=== PATIENT | female | born 1960 | race Caucasian/White ===

== ENCOUNTER 2017-04-03 19:42 | Emergency (ER) | payer MEDICARE, OTHER ==
[~2017-04-03] VITALS: Ht 152.4 cm; Wt 78.0 kg
[~2017-04-03 19:42] MED LIST: AMLO-145 PO; CALC200T PO; CARV25TA79 PO; CHOL400T10 PO; CINA60TA; CLOP75TA19 PO; DOXY-220 PO; FOLI-49 PO; HYDR-3498 PO; HYDR-3671 PO; IBUP-1542; LIPA1CAP4 PO; NEPH PO; OLME40TA14 PO; OMEP20CA16 PO; ONDA-43 PO; SEVE800T7 PO
[2017-04-03 19:48] VITALS: Ht 152.4 cm; Wt 78.0 kg
[2017-04-03] MEDS ORDERED: IPRATROPIUM (NEB) 0.5 MG/2.5 ML AMP NEB STA (20:30)
[2017-04-03] MEDS ORDERED: ALBUTEROL 0.083% (NEB) 2.5 MG/3 ML AMP NEB STA (20:30)
--- NOTE | 2017-04-03 21:59 | ERD ---
ER Documentation Chief Complaint Date/Time DATE: 04/03/17 TIME: 21:51 Chief Complaint c/o cough x 1 wk. (+) moderate phlegm. (+) CP when coughing. No fever. HPI This pleasant 56-year-old [place]ian-speaking female presents to emergency department with her son for translation reporting more than a week of cough,. Patient reports cough is phlegmy productive for brown to clear mucus. Denies any shortness of breath, reports chest pain secondary to coughing. Denies palpitations, dizziness. Patient denies fever, chills, night sweats or hemoptysis. Patient reports coughing so hard that she is getting a headache, has tried [id number] medication with little relief of symptoms. Denies history of asthma, COPD, seasonal allergies. ROS All systems reviewed and are negative except as per history of present illness. Medications Home Meds Active Scripts Doxycycline Monohydrate* (Doxycycline Monohydrate*) 100 Mg Tablet, 100 MG PO BID for RUE AV fistula cellulitis , #20 TAB Prov:FRANCISCO CALIXTO MD 07/20/15 Calcium Carbonate* (Tums*) 500 Mg Tab.chew, 500 MG PO TID, #30 TAB.CHEW take 2 tabs by mouth 3 times a day Prov:DANIELLE WOMACK DO 04/28/15 Reported Medications Hydrocodone Bit-Acetaminophen* (Dania*) 5-325 Mg Tab, 1 TAB PO Q4H Y for PAIN, TAB 04/24/15 Hydralazine Hcl* (Hydralazine Hcl*) 25 Mg Tab, 25 MG PO TID, TAB 04/24/15 Olmesartan Medoxomil (Benicar) 40 Mg Tablet, 40 MG PO DAILY, TAB 04/24/15 Ondansetron Hcl* (Zofran*) 4 Mg Tab, 4 MG PO Q4H Y for NAUSEA AND OR VOMITING, TAB 04/24/15 Nyfclv-Qwiunmvg-Zaasnod* (Kadie BOSS* 12,000) 12,000 L-38,000-60,000 Unit Capsule., 1 CAP PO WITH MEALS, CAP 04/24/15 Omeprazole* (Omeprazole*) 20 Mg Capsule.dr, 20 MG PO DAILY, CAP 04/24/15 Cholecalciferol* (Vitamin D*) 400 Unit Tablet, 400 UNIT PO DAILY, TAB 04/24/15 Ibuprofen* (Ibuprofen*) 600 Mg Tablet 02/18/13 Cinacalcet* (Sensipar*) 60 Mg Tablet, DAILY 02/18/13 Folic Acid* (Folic Acid*) 1 Mg Tablet, 1 MG PO DAILY 08/15/11 Sevelamer Carbonate* (Renvela*) 800 Mg Tablet, 800 MG PO TID 08/15/11 Multivit/Ca Carb/B Cmplx/Fa* (Lucila-Vic*) 1 Tab Tab, 1 TAB PO DAILY 08/15/11 Clopidogrel Bisulfate (Plavix) 75 Mg Tablet, 75 MG PO DAILY 08/15/11 Carvedilol* (Carvedilol*) 25 Mg Tablet, 12.5 MG PO BID 08/15/11 Amlodipine Besylate* (Amlodipine Besylate*) 5 Mg Tablet, 10 MG PO DAILY 08/15/11 Allergies Allergies: Coded Allergies: No Known Drug Allergies (Verified Allergy, Unknown, 07/17/15) Uncoded Allergies: FISH (Allergy, Unknown, 02/21/13) PMhx/Soc History of Surgery: Yes (nephrostomy, knee replacement, cataracts) Anesthesia Reaction: No Hx Neurological Disorder: No Hx Respiratory Disorders: No Hx Cardiac Disorders: Yes (HTN, CHOLESTEROL) Hx Psychiatric Problems: No Hx Miscellaneous Medical Probl: Yes (Dialysis, HTN, diabetes) Hx Alcohol Use: No Hx Substance Use: No Hx Tobacco Use: No Physical Exam Vitals Vital Signs Date Time Temp Pulse Resp B/P Pulse Ox O2 Delivery O2 Flow Rate FiO2 04/03/17 20:45 75 20 96 21 04/03/17 19:48 99.1 73 18 186/82 98 Vitals stable, triage notes reviewed, blood pressure noted to be elevated 186/ 82 asymptomatic. Physical Exam Const: Well-appearing, no acute distress Head: Atraumatic Eyes: Normal Conjunctiva, PERRLA, EOMI ENT: Normal External Ears, Nose and Mouth mucous membranes moist Neck: Full range of motion..~ No meningismus. Resp: Inspiration even and unlabored, short inspiration, patient unable to fully take a breath without coughing, diminished bases, loose rhonchi, no egophony, no respiratory distress Cardio: Regular rate and rhythm, no murmurs, S1-S2, no S3-S4 Abd: Soft, non tender, non distended. No epigastric pain Skin: Back: No midline or flank tenderness Ext: Neur: Awake and alert Psych: Normal Mood and Affect Results 24 hrs Current Medications Medications (Trade) Dose Ordered Sig/Taz Route PRN Reason Start Time Stop Time Status Last Admin Dose Admin Albuterol (Proventil 0.083% (Neb)) 5 mg ONCE STAT NEB 04/03/17 20:30 04/03/17 20:34 DC 04/03/17 20:44 Ipratropium [place] (Atrovent 0.02% (Neb)) 0.5 mg ONCE STAT NEB 04/03/17 20:30 04/03/17 20:34 DC 04/03/17 20:44 Procedures/MDM This 56-year-old female presents to emergency department with her son for evaluation of cough worsening over the last 10 days productive for brown to clear sputum without fever, or chills. Pneumonia, tuberculosis, acute OH is not suspected. Patient unable to fully take deep breaths without coughing, treated in emergency department with nebulized albuterol and Atrovent, post treatment patient is able to cough and deep breathe without wheezing or rhonchi auscultated, patient will be discharged home with diagnosis of bronchitis treated with azithromycin 500 mg day one , 250 mg day 2 through 5, albuterol MDI with spacer pharmacy to provide teaching. Use 2 puffs every 4 hours as needed cough, shortness of breath. Follow-up with primary care physician for reevaluation in 5 days, return to emergency department for worsening of symptoms , shortness of breath, chest pain. I feel the patient is stable for discharge at this time. I have discussed results, examination findings, the treatment plan with the patient and family present prior to discharge. Indications for emergent reevaluation, side effects of medication were also discussed. All questions were answered. Patient verbalizes understanding and agrees with plan of care. Departure Diagnosis: Primary Impression: Bronchitis Condition: Good Patient Instructions: Acute Bronchitis [facility] Additional Instructions: Thank you for for coming to [facility] for your care today. Please ask your nurse or provider if you have questions about your care today and do not leave until all your questions have been answered. Please use any medications given as directed and follow-up with your doctor (or the doctor you were referred to) in the next 2-3 days. If you do not have a primary care doctor you may follow up at the [facility] (listed below). You may also use motrin and tylenol as needed for fever and/or pain unless instructed otherwise by your provider or nurse. Indications for more urgent follow-up have been discussed, but you may return to the Emergency Department at ANY time for any worrisome or worsening symptoms. If you have abdominal pain, please know that no test or exam you received is perfect and you should follow up within 8 hours for continued pain. If you had any imaging studies today, such as an X-Ray or CT Scan, these studies will be reviewed later by a radiologist. You will be called if there are important findings that were not identified today, so make sure the contact information you provided at registration is correct. If you received any narcotic pain control medicine today, such as Vicodin, Morphine or Dilaudid, your coordination and judgment may be affected for a number of hours. Please do not drive or operate heavy machinery, and you may want someone to assist you at home. If you were given a prescription for narcotic medication, be aware that it is very addictive- use sparingly and only if necessary. KIMBERLEY CASE Apr 03, 2017 21:59
[2017-04-03] MEDS ORDERED: AZIT250T94 PO (22:02)
[2017-04-03] MEDS ORDERED: ALBU18HF INHALATION (22:06)
[2017-04-03] MEDS ORDERED: INHA1SPA53 MC (22:06)
== END 2017-04-03 22:46 | disposition home or self-care (01) ==
LOC: FTE 19:42
DX: J20.9 Acute bronchitis, unspecified (principal); E11.9 Type 2 diabetes mellitus without complications; I10 Essential (primary) hypertension; Z96.659 Presence of unspecified artificial knee joint
CPT/HCPCS: 94664

== ENCOUNTER 2017-12-12 10:27 | Emergency (ER) | END 2017-12-12 12:01 | disposition home or self-care (01) ==

== ENCOUNTER 2018-04-18 23:14 | Emergency (ER) | END 2018-04-19 03:25 | disposition home or self-care (01) ==

== ENCOUNTER 2018-07-14 23:43 | Emergency (ER) | END 2018-07-15 02:39 | disposition home or self-care (01) ==

== ENCOUNTER 2018-09-17 19:27 | Emergency (ER) | END 2018-09-18 01:05 | disposition home or self-care (01) ==

== ENCOUNTER 2019-07-16 00:59 | Emergency (ER) | payer MEDICARE, OTHER ==
[~2019-07-16] VITALS: Ht 152.4 cm; Wt 81.9 kg
[~2019-07-16 00:59] MED LIST changes: +ACET325T33 PO; +ACET500C5 PO; +ALBU18HF INHALATION; -AMLO-145 PO; +AMLO-147 PO; +ASPI-817 PO; +ATOR10TA65 PO; +BISA5TAB6 PO; -CALC200T PO; +CARI350T PO; -CARV25TA79 PO; +CARV3.1260 PO; +CEPH-443 PO; -CHOL400T10 PO; -CINA60TA; +CLON0.2T5 PO; -CLOP75TA19 PO; +DOCU-144 PO; -DOXY-220 PO; +FAMO20TA18 PO; +GLIP-160 PO; -HYDR-3498 PO; -HYDR-3671 PO; +HYDR-3672 PO; -IBUP-1542; +IBUP-1561 PO; -LIPA1CAP4 PO; +MULTI PO; +MYCO180T2 PO; -NEPH PO; +NITR-58 PO; +NOVO3I SC; -OLME40TA14 PO; +OMEG-135 PO; -OMEP20CA16 PO; -ONDA-43 PO; +ONDA4TAB13 PO; +ONDA4TAB14 PO; +PHEN-537 PO; +PRED2.5T3 PO; -SEVE800T7 PO; +SITA25TA3 PO; +SODI126M NASAL; +TACR1CAP PO
[2019-07-16 01:12] VITALS: Ht 152.4 cm; Wt 81.9 kg
[2019-07-16] MEDS ORDERED: PHENAZOPYRIDINE 100 MG TAB PO ONE (02:00)
[2019-07-16] MEDS ORDERED: CEFTRIAXONE 1 GM INJ IM ONE (02:00)
[2019-07-16] MEDS ORDERED: LIDOCAINE 1% (MPF) 5 ML VIAL INFIL ONE (02:00)
[2019-07-16 02:28] VITALS: BP 179/83; PULSE 101; RESP 22
== END 2019-07-16 02:30 | disposition home or self-care (01) ==
LOC: FTE 00:59
DX: N39.0 Urinary tract infection, site not specified (principal); I10 Essential (primary) hypertension; E11.9 Type 2 diabetes mellitus without complications; Z79.4 Long term (current) use of insulin; Z79.82 Long term (current) use of aspirin; Z96.659 Presence of unspecified artificial knee joint
CPT/HCPCS: 96372; 99284; J0696